=== PATIENT | male | born 1965 | race African-American/Black ===

== ENCOUNTER 2017-07-18 13:21 | Emergency (ER) | payer BC ==
--- NOTE | 2017-07-18 13:39 | EDM.PDOC ---
ED HPI GENERAL MEDICAL PROBLEM - General Chief Complaint: Respiratory Problem Stated Complaint: BODY ACHES Time Seen by Provider: 07/18/17 13:29 - History of Present Illness INITIAL COMMENTS - FREE TEXT/NARRATIVE: HISTORY AND PHYSICAL: History of present illness: Patient 52-year-old black male who presents with four-day history of Oddi aches fever and chills he's had no shortness of breath no vomiting no diarrhea no other complaints he has not received influenza immunization this year Review of systems: As per history of present illness and below otherwise all systems reviewed and negative. Past medical history: As per history of present illness and as reviewed below otherwise noncontributory. Surgical history: As per history of present illness and as reviewed below otherwise noncontributory. Social history: No reported history of drug or alcohol abuse. Family history: As per history of present illness and as reviewed below otherwise noncontributory. Physical exam: HEENT: Atraumatic, normocephalic, pupils reactive, negative for conjunctival pallor or scleral icterus, mucous membranes moist, throat clear, neck supple, nontender, trachea midline. Lungs: Clear to auscultation, breath sounds equal bilaterally, chest nontender. Heart: S1S2, regular, negative for clicks, rubs, or JVD. Abdomen: Soft, nondistended, nontender. Negative for masses or hepatosplenomegaly. Negative for costovertebral tenderness. Pelvis: Stable nontender. Genitourinary: Deferred. Rectal: Deferred. Extremities: Atraumatic, negative for cords or calf pain. Neurovascular unremarkable. Neuro: Awake, alert, oriented. Cranial nerves II through XII unremarkable. Cerebellum unremarkable. Motor and sensory unremarkable throughout. Exam nonfocal. Diagnostics: Influenza screen Therapeutics: None Impression: 1 viral syndrome Definitive disposition and diagnosis as appropriate pending reevaluation and review of above. - Related Data Allergies Allergy/AdvReac Type Severity Reaction Status Date / Time No Known Allergies Allergy Verified 07/18/17 13:33 Home Meds: Home Meds . [No Known Home Meds] 07/18/17 [History] ED ROS GENERAL - Review of Systems Review Of Systems: ROS reveals no pertinent complaints other than HPI. ED EXAM, GENERAL - Physical Exam Exam: See Below (See dictation) Course - Vital Signs Last Recorded V/S: Last Vital Signs Temp 36.3 C 07/18/17 13:34 Pulse 76 07/18/17 13:34 Resp 18 07/18/17 13:34 BP 121/67 07/18/17 13:34 Pulse Ox 95 07/18/17 13:34 - Orders/Labs/Meds Orders: Active Orders 24 hr Category Date Time Status Cardiac Monitoring [RC] . DIRECTED Care 07/18/17 13:46 Inactive EKG Documentation Completion [RC] STAT Care 07/18/17 13:47 Inactive Oxygen Therapy, ED [RC] ASDIRECTED Care 07/18/17 13:46 Inactive Meds: Medications Discontinued Medications Generic Name Dose Route Start Last Admin Trade Name Freq PRN Reason Stop Dose Admin Aspirin 324 mg 07/18/17 13:44 07/18/17 14:23 Aspirin PO 07/18/17 13:45 Not Given ONETIME ONE Nitroglycerin 0.4 mg 07/18/17 13:44 Nitrostat SL Q5M PRN Chest Pain Departure - Departure Time of Disposition: 14:37 Disposition: Home, Self-Care 01 Condition: Good Clinical Impression: Viral syndrome - Discharge Information Referrals: PCP,None [Primary Care Provider] - Forms: ED Department Discharge Additional Instructions: The following information is given to patients seen in the emergency department who are being discharged to home. This information is to outline your options for follow-up care. We provide all patients seen in our emergency department with a follow-up referral. The need for follow-up, as well as the timing and circumstances, are variable depending upon the specifics of your emergency department visit. If you don't have a primary care physician on staff, we will provide you with a referral. We always advise you to contact your personal physician following an emergency department visit to inform them of the circumstance of the visit and for follow-up with them and/or the need for any referrals to a consulting specialist. The emergency department will also refer you to a specialist when appropriate. This referral assures that you have the opportunity for followup care with a specialist. All of these measure are taken in an effort to provide you with optimal care, which includes your followup. Under all circumstances we always encourage you to contact your private physician who remains a resource for coordinating your care. When calling for followup care, please make the office aware that this follow-up is from your recent emergency room visit. If for any reason you are refused follow-up, please contact the [facility] emergency department at and asked to speak to the emergency department charge nurse. Push fluids Motrin/Tylenol as directed return as needed as discussed - My Orders Last 24 Hours: My Active Orders 07/18/17 13:46 Cardiac Monitoring [RC] . DIRECTED Oxygen Therapy, ED [RC] ASDIRECTED 07/18/17 13:47 EKG Documentation Completion [RC] STAT - Assessment/Plan Last 24 Hours: My Active Orders 07/18/17 13:46 Cardiac Monitoring [RC] . DIRECTED Oxygen Therapy, ED [RC] ASDIRECTED 07/18/17 13:47 EKG Documentation Completion [RC] STAT
[2017-07-18] MEDS ORDERED: Nitroglycerin 0.4 MG Tab.SL SL PRN (13:44)
[2017-07-18] MEDS ORDERED: Aspirin 81 MG Tab.Chew PO ONE (13:44)
== END 2017-07-18 14:53 | disposition home or self-care (01) ==
LOC: MW.ED 13:21
DX: B34.9 Viral infection, unspecified (principal)
CPT/HCPCS: 87804; 99282; 99283-25

== ENCOUNTER 2017-11-28 10:08 | Day surgery (SDC) | payer BC ==
[~2017-11-28 10:08] MED LIST: Lactated Ringers 1,000 ML IV SCH; Midazolam 1 MG/ML 2 ML SDV ONE; Propofol 200 MG/20 ML SDV ONE; fentaNYL 100 MCG/2 ML SDV ONE
[2017-11-28] MEDS ORDERED: Lidocaine 2% 5 ML SDV ONE (10:23)
--- NOTE | 2017-11-28 10:57 | PCM.PREANE ---
Preanesthetic Assessment - Anesthesia/Transfusion/Family Hx Anesthesia History: Prior Anesthesia Without Reaction Family History of Anesthesia Reaction: No Transfusion History: No Prior Transfusion(s) Intubation History: Unknown - Review of Systems General: No Symptoms Pulmonary: No Symptoms Cardiovascular: No Symptoms Gastrointestinal: No Symptoms, Other (screening, grandfather had colon cancer) Neurological: No Symptoms Other: Reports: None - Physical Assessment O2 Sat by Pulse Oximetry: 97 Respiratory Rate: 16 Vital Signs: Last Vital Signs Temp 36.4 C 11/28/17 10:36 Pulse 66 11/28/17 10:36 Resp 16 11/28/17 10:36 BP 134/65 11/28/17 10:36 Pulse Ox 97 11/28/17 10:36 Height: 1.91 m Weight: 126.099 kg ASA Class: 2 Mental Status: Alert & Oriented x3 Airway Class: Mallampati = 2 Dentition: Reports: Normal Dentition, Partial (upper) Thyro-Mental Finger Breadths: 3 Mouth Opening Finger Breadths: 3 ROM/Head Extension: Full Lungs: Clear to Auscultation, Normal Respiratory Effort Cardiovascular: Regular Rate, Regular Rhythm - Allergies Allergies/Adverse Reactions: Allergies Allergy/AdvReac Type Severity Reaction Status Date / Time Dairy Products Allergy Hives Verified 11/23/17 10:40 - Blood Blood Available: No - Anesthesia Plan Pre-Op Medication Ordered: None - Acknowledgements Anesthesia Type Planned: MAC Pt an Appropriate Candidate for the Planned Anesthesia: Yes Alternatives and Risks of Anesthesia Discussed w Pt/Guardian: Yes Pt/Guardian Understands and Agrees with Anesthesia Plan: Yes PreAnesthesia Questionnaire - Past Health History Medical/Surgical History: Denies Medical/Surgical History HEENT History: Reports: Other (See Below) Other HEENT History: wears glasses, top partial Respiratory History: Reports: SOB (on exertion) Musculoskeletal History: Reports: Fracture Other Musculoskeletal History: hx fx leg as a child Endocrine/Metabolic History: Reports: Obesity/BMI 30+ - Past Surgical History Head Surgeries/Procedures: Reports: None HEENT Surgical History: Reports: Oral Surgery - SUBSTANCE USE Smoking Status *Q: Current Every Day Smoker (1/2 ppd) Tobacco Use Within Last Twelve Months: Cigarettes Recreational Drug Use History: No - HOME MEDS Home Medications: Home Meds Glycopyrrolate/Formoterol Fum [Bevespi Aerosphere Inhaler] 2 puff INH ASDIRECTED 11/23/17 [History] - CURRENT (IN HOUSE) MEDS Current Meds: Current Medications Lactated Ringer's (Ringers, Lactated) 1,000 mls @ 125 mls/hr IV ASDIRECTED BRENNEN Last Admin: 11/28/17 10:36 Dose: 125 mls/hr Discontinued Medications Fentanyl (Sublimaze) Confirm Administered Dose 100 mcg .ROUTE .STK-MED ONE Stop: 11/28/17 08:33 Lidocaine (Xylocaine-Mpf 2%) Confirm Administered Dose 5 ml .ROUTE .STK-MED ONE Stop: 11/28/17 10:24 Midazolam HCl (Versed 1 Mg/Ml) Confirm Administered Dose 2 mg .ROUTE .STK-MED ONE Stop: 11/28/17 08:33 Propofol (Diprivan 20 Ml) Confirm Administered Dose 200 mg .ROUTE .STK-MED ONE Stop: 11/28/17 08:33
[2017-11-28] MEDS ORDERED: Propofol 200 MG/20 ML SDV ONE ×2 (11:33→11:44)
[2017-11-28] MEDS ORDERED: Lactated Ringers 1,000 ML IV SCH (12:00)
--- NOTE | 2017-11-28 12:01 | PCM.OPNOTE ---
- General Post-Op/Procedure Note Date of Surgery/Procedure: 11/28/17 Operative Procedure(s): Colonoscopy Pre Op Diagnosis: family history of colon cancer. Desire for colorectal cancer screening. Post-Op Diagnosis: Pancolonic diverticulosis Anesthesia Technique: MAC (ASA II) Primary Surgeon: Ronnie Woodall Fluid Replacement, Intraop: 500 Condition: Good Free Text/Narrative:: DICTATION [id number] CPT CODE 69827
--- NOTE | 2017-11-28 12:41 | PCM48HPAN ---
Post Anesthesia Note - EVALUATION WITHIN 48HRS OF ANESTHETIC Vital Signs in Normal Range: Yes Patient Participated in Evaluation: Yes Respiratory Function Stable: Yes Airway Patent: Yes Cardiovascular Function Stable: Yes Hydration Status Stable: Yes Pain Control Satisfactory: Yes Nausea and Vomiting Control Satisfactory: Yes Mental Status Recovered: Yes Resp Rate: 12 - COMMENTS/OBSERVATIONS Free Text/Narrative:: no anesthesia problems
--- NOTE | 2017-11-28 12:43 | OR ---
SURGEON: Ronnie Woodall M.D. DATE OF PROCEDURE: 11/28/2017 OPERATION PERFORMED: Colonoscopy. ANESTHESIA: MAC. ASA CLASSIFICATION: II. PREOPERATIVE DIAGNOSES: 1. Family history of colon cancer. 2. Desire for colorectal cancer screening. POSTOPERATIVE DIAGNOSIS: No evidence of neoplasia. DESCRIPTION OF PROCEDURE: The patient was taken to the endoscopy room and positioned on the endoscopy table in the left lateral decubitus position. Time-out was called for appropriate identification of the patient and procedure. Monitored anesthesia care was provided. The colonoscope was inserted into the rectum and advanced with moderate difficulty to the cecum. The cecum was identified by internal landmarks and external pressure. The colonoscope was retroflexed to visualize the ascending colon from below, then straightened and slowly withdrawn. The patient does demonstrate pancolonic diverticulosis. The cecum, ascending colon, hepatic flexure, transverse colon, splenic flexure, descending colon, sigmoid colon, and rectum were well visualized. No tumors, polyps or angiodysplastic changes were noted. There was no evidence of inflammatory bowel disease. No stricture, spasm, or bleeding was noted in the sigmoid colon. The colonoscope was withdrawn to the rectum and retroflexed to visualize the anal orifice from above. Again, no tumors or polyps were seen and there were no acute hemorrhoidal changes. The colonoscope was then straightened, the rectum aspirated, and the colonoscope removed. The patient tolerated the procedure well and was taken to recovery room in stable condition. MARCELLA MOORE /[id number]
== END 2017-11-28 12:50 | disposition home or self-care (01) ==
LOC: MW.SDS 10:08
PROVIDERS: ATTEND Surgery
DX: Z12.11 Encounter for screening for malignant neoplasm of colon (principal); K57.30 Diverticulosis of large intestine without perforation or abscess without bleeding; F17.210 Nicotine dependence, cigarettes, uncomplicated; E66.9 Obesity, unspecified; Z68.34 Body mass index [BMI] 34.0-34.9, adult; Z80.0 Family history of malignant neoplasm of digestive organs; Z91.011 Allergy to milk products
CPT/HCPCS: 45378; J2250; J3010; J7120; J2704

== ENCOUNTER 2019-06-18 14:30 | Emergency (ER) | payer OTHER ==
--- NOTE | 2019-06-18 14:43 | EDM.PDOC ---
ED HPI GENERAL MEDICAL PROBLEM - General Chief Complaint: Gastrointestinal Problem Stated Complaint: PT CLAIMS POSSIBLE FLU OR FOOD POISONING Time Seen by Provider: 06/18/19 14:41 Source of Information: Reports: Patient History Limitations: Reports: No Limitations - History of Present Illness INITIAL COMMENTS - FREE TEXT/NARRATIVE: HISTORY AND PHYSICAL: History of present illness: Patient is a 54-year-old male presents to the ED with complaint of vomiting and diarrhea since this morning. He states he has had 6 episodes of non-bloody diarrhea since 6am. He states he had a few episodes of vomiting but was able to drink some juice just prior to arrival to the ED. He denies fevers, chills, abdominal pain, vomiting, diarrhea, chest pain, shortness of breath. He states his had similar symptoms this weekend. Review of systems: As per history of present illness and below otherwise all systems reviewed and negative. Past medical history: As per history of present illness and as reviewed below otherwise noncontributory. Surgical history: As per history of present illness and as reviewed below otherwise noncontributory. Social history: No reported history of drug or alcohol abuse. Family history: As per history of present illness and as reviewed below otherwise noncontributory. Physical exam: General: Patient sitting comfortably in no acute distress and nontoxic appearing HEENT: Atraumatic, normocephalic, pupils reactive, negative for conjunctival pallor or scleral icterus, mucous membranes moist, throat clear, neck supple, nontender, trachea midline. No meningeal signs. Lungs: Clear to auscultation, breath sounds equal bilaterally, chest nontender. Heart: S1S2, regular, negative for clicks, rubs, or overt murmur. Abdomen: Soft, nondistended, nontender. Negative for masses or hepatosplenomegaly. Negative for costovertebral tenderness. No rigidity, rebound , guarding. Pelvis: Stable nontender. Genitourinary: Deferred. Rectal: Deferred. Extremities: Atraumatic, negative for cords or calf pain. Neurovascular unremarkable. Neuro: Awake, alert, oriented. Cranial nerves II through XII unremarkable. Cerebellum unremarkable. Motor and sensory unremarkable throughout. Exam nonfocal. Notes: Diagnostics: Influenza Declined labs and IV Therapeutics: Zofran 4mg ODT Prescriptions: Zofran Impression: Viral gastroenteritis Plan: Drink plenty of small sips of fluids and bland food as tolerated You may take zofran as needed for nausea/vomiting Follow up with primary care provider Return to ED as needed as discussed Definitive disposition and diagnosis as appropriate pending reevaluation and review of above. Generalized Pain Score (Numeric/FACES): 8 - Related Data Allergies Allergy/AdvReac Type Severity Reaction Status Date / Time Dairy Products Allergy Hives Verified 06/18/19 14:38 Home Meds: Home Meds Glycopyrrolate/Formoterol Fum [Bevespi Aerosphere Inhaler] 2 puff INH ASDIRECTED 11/23/17 [History] Ondansetron [Zofran ODT] 4 mg PO Q6H PRN #10 tab.dis 06/18/19 [Rx] Past Medical History - Past Health History Medical/Surgical History: Denies Medical/Surgical History HEENT History: Reports: Other (See Below) Other HEENT History: wears glasses, top partial Respiratory History: Reports: SOB Musculoskeletal History: Reports: Fracture Other Musculoskeletal History: hx fx leg as a child Endocrine/Metabolic History: Reports: Obesity/BMI 30+ - Past Surgical History Head Surgeries/Procedures: Reports: None HEENT Surgical History: Reports: Oral Surgery GI Surgical History: Reports: Colonoscopy Social & Family History - Family History Family Medical History: Noncontributory - Caffeine Use Caffeine Use: Reports: Coffee ED ROS GENERAL - Review of Systems Review Of Systems: Comprehensive ROS is negative, except as noted in HPI. ED EXAM, GI/ABD - Physical Exam Exam: See Below (see dictation) Course - Vital Signs Last Recorded V/S: Last Vital Signs Temp 98.7 F 06/18/19 14:38 Pulse 100 06/18/19 14:38 Resp 17 06/18/19 14:38 BP 111/66 06/18/19 14:38 Pulse Ox 97 06/18/19 14:38 - Orders/Labs/Meds Meds: Medications Discontinued Medications Generic Name Dose Route Start Last Admin Trade Name Freq PRN Reason Stop Dose Admin Ondansetron HCl 4 mg 06/18/19 14:49 06/18/19 14:58 Zofran Odt PO 06/18/19 14:50 4 mg ONETIME ONE Administration Departure - Departure Time of Disposition: 15:14 Disposition: Home, Self-Care 01 Condition: Good Clinical Impression: Viral gastroenteritis - Discharge Information Referrals: PCP,Unknown [Primary Care Provider] - Forms: ED Department Discharge Additional Instructions: The following information is given to patients seen in the emergency department who are being discharged to home. This information is to outline your options for follow-up care. We provide all patients seen in our emergency department with a follow-up referral. The need for follow-up, as well as the timing and circumstances, are variable depending upon the specifics of your emergency department visit. If you don't have a primary care physician on staff, we will provide you with a referral. We always advise you to contact your personal physician following an emergency department visit to inform them of the circumstance of the visit and for follow-up with them and/or the need for any referrals to a consulting specialist. The emergency department will also refer you to a specialist when appropriate. This referral assures that you have the opportunity for follow-up care with a specialist. All of these measure are taken in an effort to provide you with optimal care, which includes your follow-up. Under all circumstances we always encourage you to contact your private physician who remains a resource for coordinating your care. When calling for follow-up care, please make the office aware that this follow-up is from your recent emergency room visit. If for any reason you are refused follow-up, please contact the [facility] Emergency Department at and asked to speak to the emergency department charge nurse. [facility] [address] [place] [address] [place] [address] Drink plenty of small sips of fluids and bland food as tolerated You may take zofran as needed for nausea/vomiting Follow up with primary care provider Return to ED as needed as discussed Sepsis Event Note - Evaluation Sepsis Screening Result: No Definite Risk - Focused Exam Vital Signs: Vital Signs Temp Pulse Resp BP Pulse Ox 06/18/19 14:38 98.7 F 100 17 111/66 97 Date Exam was Performed: 06/18/19 Time Exam was Performed: 15:11
[2019-06-18] MEDS ORDERED: Ondansetron 4 MG Tab.DIS PO ONE (14:49)
== END 2019-06-18 15:35 | disposition home or self-care (01) ==
LOC: MW.ED 14:30
DX: A08.4 Viral intestinal infection, unspecified (principal); E66.9 Obesity, unspecified; Z91.018 Allergy to other foods
CPT/HCPCS: 87804; 99284; A9270

== ENCOUNTER 2021-06-12 21:54 | Emergency (ER) | payer BC ==
[2021-06-12 23:33] LABS: CORONAVIRUS COVID-19 NAA POSITIVE (NEGATIVE); INFLUENZA A NAA NEGATIVE (NEGATIVE); INFLUENZA B NAA NEGATIVE (NEGATIVE)
== END 2021-06-13 00:37 | disposition home or self-care (01) ==
LOC: MW.ED 21:54
DX: U07.1 COVID-19 (principal); E66.9 Obesity, unspecified; Z68.34 Body mass index [BMI] 34.0-34.9, adult
CPT/HCPCS: 0240U; 93005; 99284-25